=== PATIENT | male | born 1980 | race Caucasian/White ===

== ENCOUNTER 2023-04-13 14:44 | Day surgery (SDC) | payer OTHER, SELFPAY ==
[2023-04-13] VITALS (8 sets, daily range): BP systolic 105–139; BP diastolic 60–82; PULSE 78–87; RESP 16–22; TEMP 36.3–36.6; O2SAT 96–100
--- NOTE | ~2023-04-13 | XR_ITS ---
EXAMINATION: XR forearm RT 2V INDICATION: Right forearm laceration and pain TECHNIQUE: Two views of the right forearm are obtained. COMPARISON: None available FINDINGS: Bone alignment is normal. There is no fracture. There is a dorsal soft tissue laceration ov erlying the distal forearm. A 1 mm radiopaque density projects ventral and lateral to the distal radi us. The joint spaces are normal. IMPRESSION: 1. Soft tissue laceration of the right forearm without acute osseous abnormality. 2. 1 mm radiopaque density projecting ventral and lateral to the distal radius which appears to be di stant from the laceration site and is of unclear location. Reviewed, dictated and finalized at location B. ROOM COURIER IMPRESSION: 1. Soft tissue laceration of the right forearm without acute osseous abnormalit y. 2. 1 mm radiopaque density projecting ventral and lateral to the distal radius which appears to be distant from the laceration site and is of unclear location .
--- NOTE | 2023-04-13 15:33 | ED.WOUNDLAC ---
HPI - Wound/Laceration General Chief Complaint: Wound/Laceration Stated Complaint: cut right arm on window Time Seen by Provider: 04/13/23 15:14 Source: patient Mode of arrival: ambulatory Limitations: no limitations History of Present Illness HPI narrative: This is a 42 year old male that presents to the ER for right forearm laceration sustained just prior to arrival. Reports he cut it on a window. Reports bleeding and pain to the area. Denies decreased ROM in the left 4th and 5th fingers. Denies numbness. Related Data Allergies Allergy/AdvReac Type Severity Reaction Status Date / Time No Known Allergies Allergy Verified 04/13/23 15:09 Review of Systems Review of Systems: CONSTITUTIONAL: Denies fever SKIN: Reports laceration MUSCULOSKELETAL: Reports joint pain, and myalgia. NEUROLOGIC: Denies numbness All systems reviewed & are unremarkable except as noted in HPI and below PMFSH Past Medical History Medical History (Updated 04/13/23 @ 17:11 by Trang Morales PA-C) No active medical problems Social History Social History (Updated 04/13/23 @ 15:37 by Trang Morales PA-C) Substance use: never Exam Narrative: GENERAL: Well-appearing, well-nourished, and in no acute distress. HEAD: Normocephalic, atraumatic. EYES: EOMI. EXTREMITIES: Decreased extension in the right 4th and 5th fingers. Normal radial pulse. Normal sensation. 7cm linear laceration into the subcutaneous tissue to the distal forearm dorsal aspect, involving some muscles and tendons SKIN: Warm, dry, no rash. NEURO: No focal deficits. Alert and oriented x3. PSYCH: Normal mood and affect Course Consultations Consultation #1: Dr. Fernandez came down to the ER to evaluate patient and will take him to the OR for further management Date: 04/13/23 Vital Signs Vital signs: Vital Signs Temperature 97.9 F 04/13/23 14:50 Pulse Rate 79 04/13/23 14:50 Respiratory Rate 16 04/13/23 14:50 Blood Pressure 105/60 04/13/23 14:50 Pulse Oximetry 100 04/13/23 14:50 Temperature 97.9 F 04/13/23 14:50 Pulse Rate 79 04/13/23 14:50 Respiratory Rate 16 04/13/23 14:50 Blood Pressure 105/60 04/13/23 14:50 Pulse Oximetry 100 04/13/23 14:50 MDM - Wound/Laceration MDM Narrative Medical decision making narrative: Patient presents to the emergency department for a laceration of the right forearm sustained just prior to arrival. His wound was thoroughly irrigated and explored. He did appear to have involvement of some muscles and tendons in his forearm. Having difficulty extending his 4th and 5th fingers. Forearm x-ray without acute osseous abnormalities. Shows a 1mm radiopaque density which appears to be distant from the laceration site. Patient was updated on his tetanus vaccination. Dr. Fernandez came down to the ER to evaluate patient and will take him to the OR for further management Differential Diagnosis Differential diagnosis: Likely laceration Imaging Data Radiologist's impression: ITS Impressions Forearm X-Ray 04/13/23 15:34 IMPRESSION: 1. Soft tissue laceration of the right forearm without acute osseous abnormality. 2. 1 mm radiopaque density projecting ventral and lateral to the distal radius which appears to be distant from the laceration site and is of unclear location. Critical Care Time Critical Care Time Critical Care Time: No Discharge Plan Discharge Clinical Impression: Laceration of forearm, right, with tendon involvement Qualifiers: Encounter type: initial encounter Qualified Code(s): S51.811A - Laceration without foreign body of right forearm, initial encounter Patient Disposition: Still a Patient Condition: Stable
--- NOTE | 2023-04-13 17:11 | PC.NURSE ---
Dr. Fernandez at bedside assessing patient.
--- NOTE | 2023-04-13 17:17 | WPDCN ---
Assessment and Plan Assessment and plan (1) Laceration of forearm, right, with tendon involvement: Qualifiers: Encounter type: initial encounter Qualified Code(s): S51.811A - Laceration without foreign body of right forearm, initial encounter; S56.921A - Laceration of unspecified muscles, fascia and tendons at forearm level, right arm, initial encounter Code(s): S51.811A - Laceration without foreign body of right forearm, initial encounter; S56.921A - Laceration of unspecified muscles, fascia and tendons at forearm level, right arm, initial encounter Status: Acute Assessment and Plan: 42yo male with deep right forearm laceration and injury to muscle belly extensors of small and ring finger possible tendon involvement. reviwed impression and Dx and recommendation for surgical exploration and possible muscle belly/tendon repair as indicated reviewd procedure, postop expectations and risks. 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 He presented to ER and noted inability to extend small and ring finger. Given extent of injury plastic surgery consulted for eval and mgmt Review of Systems Review of Systems: All systems reviewed & are unremarkable except as noted in HPI and below PMFSH Past Medical History Medical History (Updated 04/13/23 @ 17:11 by Trang Morales PA-C) No active medical problems Social History Social History (Updated 04/13/23 @ 15:37 by Trang Morales PA-C) Substance use: never Meds Home Medications and Allergies Allergies Allergy/AdvReac Type Severity Reaction Status Date / Time No Known Allergies Allergy Verified 04/13/23 15:09 Vital Signs Vital Signs - 24 hr 04/13/23 14:50 Temperature 36.6 C Pulse Rate 79 Respiratory Rate 16 Blood Pressure 105/60 Pulse Oximetry 100 Exam Narrative: Gen: 7-8cm laceration on dorum tight mid forearm extending ulnarly. exposed lacerated muscle belly and identify early formation of extensor tendon. ROM:with finger extension no visible tendons in wound identified. unable to hold small and ring fingers when placed in extension Vascular: Warm and well perfused Sensation: Intact to light touch distal and dorsal to injury per pt [facility] Consult Billing Inpatient Consult Inpatient Consults: [id number] Consult Mod High
[2023-04-13] MEDS: TETANUS,DIPHTHERIA,AC PERTUSSIS ADULT (0.5 ML) BOOSTRIX IM (17:18)
--- NOTE | 2023-04-13 17:22 | P.OP_ITS ---
Procedure Note - Detailed Date of Procedure 04/13/23 Pre-op Diagnosis rigth forearm laceration Post-op Diagnosis Same (with laceration to extensor digitorum comminis, extensor digit minimi extensor carpi ulnaris and simple repair of a previously unidentified volar forearm laceration) Procedure Performed right forearm wound exploration and repair muscle belly and extensor tendon to ring and small finger and volar forearm laceration repair Surgeon Sierra Fernandez MD Shoe Polisher Gayatri Kapadia PA-C Anesthesia MAC Description of Procedure INFORMED CONSENT: The patient was seen and examined and marked in the pre-op area.? The patient signed the consent form. PROCEDURE IN DETAIL:The patient taken back to OR on the stretcher in supine position. Time out performed with anesthesia, surgeon and staff agreeing on patient's name site and surgery to be performed SCDs were placed on the lower extremities and inflated. A tourniquet was placed on {right} upper extremity and antibiotics given IV After anesthesia administered sedation I injected {10}cc 1%lido with epi and 0.5% marcaine plain at the operative site The?{right upper extremity}?was prepped and draped in sterile fashion the??{right upper extremity} was? exsanguinated with Esmarch bandage and tourniquet inflated to 250mmHg After skin prep a separate volar laceration was identified measuring 2cm in length. It was through dermis just into the subq but was noted not to be communicating with the larger dorsal laceration after probing it. The irregular skin flaps were trimmed sharply. This was irrigated and closed with 4-0 nylon suture Next I took my attention to the dorsal laceration and I proceeded with extending the patient's laceration distally and elevated flap above the antebrachial fascia for exposure. I irrigated copiously with normal saline. No retained foreign body was identified. The laceration appeared to involve the extensor digitorum communis to the small and ring finger, extensor digiti minimi and extensor carpi ulnaris. The majority of the laceration appeared to involve the muscle belly and fascia. The proximal and distal ends of anearly slip of tendon of the extensor digitorum communis to the ring finger was identified Thtendon to the ring finger was repaired with 4-0 fiberwire suture. 2-0 vicryl suture in figure of eights were used to repair the muscle bellies of the extensor digitorum communis, extensor digit minimi and the extensor carpi ulnaris. I irrigated the wound again with normal saline then closed the fascia with 3-0 fiberwire with figure of eight sutures. There was improved cascade of the fingers noted but not stressed at this time. The skin was closed with with 3-0 vicryl and 4-0 nylon suture. A dressing of xeroform, 4x4, lyn, and a volar splint was applied for patient safety, security, and comfort and secured with an vicente bandage after the tourni quet was let down noting the hand was warm and well perfused. The patient was then awaken from anesthesia and transferred to the recovery room in stable condition.? Complications - none EBL- 5cc Disposition - home in stable conditions Gaaytri Kapadia PA-C was essential for positioning, retraction, closure and dressing placement [facility] Billing Surgery - Charge Forward: Surgery Billing ([id number], [id number] same codes for Gayatri le )
--- NOTE | 2023-04-13 17:46 | P.PNAN_ITS ---
Anes - Eval Pre Procedure Procedure: right forearm wound exploration possible tendon/muscle repair, all necessary procedures Date/Time: 04/13/23 17:46 Surgeon: mitzy Preop Diagnosis: right forearm laceration with tendon involvement Pre Op Diagnosis: cut right arm on window Patient Data Age: 42 Gender: M Height: 1.83 m Weight: 128 kg Last Vital Signs Temp 36.6 C 04/13/23 14:50 Pulse 79 04/13/23 14:50 Resp 16 04/13/23 14:50 BP 105/60 04/13/23 14:50 Pulse Ox 100 04/13/23 14:50 Allergies Allergy/AdvReac Type Severity Reaction Status Date / Time No Known Allergies Allergy Verified 04/13/23 15:09 Patient hx anesthesia problems: none Family hx anesthesia problems: none Results Review: All pre-operative results and documents have been reviewed as part of the pre- operative evaluation. PMF Past Medical History Medical History No active medical problems Obesity (BMI 30-39.9) Smoker Social History Social History (Updated 04/13/23 @ 15:37 by Trang Morales PA-C) Substance use: never Exam Day of Procedure 04/13/23 17:46 Patient weight: obese Heart: regular rate and rhythm Lungs: decreased breath sounds Airway: Mallampati scale class III Neurological: alert and oriented
--- NOTE | 2023-04-13 17:52 | WPDHPUPDATE1 ---
History and Physical Update Update Date/Time: 04/13/23 17:52 History and Physical has been reviewed, including an updated exam of the patient. There are NO changes in the patient's condition. Risks, benefits, and alternatives have been discussed and questions answered. Patient agrees to proceed with procedure.
--- NOTE | 2023-04-13 17:55 | P.PNAN_ITS ---
Anes - Eval Final PreProcedure Day of Procedure 04/13/23 17:55 Patient weight: obese Heart: regular rate and rhythm Lungs: clear to auscultation Airway: Mallampati scale class II and special considerations poor dentition Neurological: alert and oriented Last oral intake: >/= 8 hours ASA classification: III Emergent: no Anesthetic plan: proceed Anesthesia type and monitoring: general ETT and standard monitoring Results Review: All pre-operative results and documents have been reviewed as part of the pre- operative evaluation. Informed Consent: The patient's anesthetic plan and its attendant risks and benefits were discussed with the patient/family/POA. Questions were solicited and answers provided to the satisfaction of the patient/family/POA.
[2023-04-13] MEDS: ceFAZolin SODIUM 1 GM VIAL IV PUSH (18:02)
[2023-04-13] MEDS: LACTATED RINGERS 1,000 ML 30 ML IV CONT (19:01)
[2023-04-13] MEDS: oxyCODONE HCL (*CRX) 5 MG TAB IR PO (20:06)
== END 2023-04-13 20:40 | disposition home or self-care (01) ==
LOC: ANHED 16:36 → ANHSURGERY 17:11
PROVIDERS: Emergency Provider Physician Assistant; Visit Provider Plastic Surgery
PROC: (CPT 25270; principal; 2023-04-13 17:55)
DX: S56.921A Laceration of unspecified muscles, fascia and tendons at forearm level, right arm, initial encounter (principal); S51.811A Laceration without foreign body of right forearm, initial encounter; W25.XXXA Contact with sharp glass, initial encounter; Z23 Encounter for immunization; E66.9 Obesity, unspecified; Z68.38 Body mass index [BMI] 38.0-38.9, adult
CPT/HCPCS: 25270 ×2; 12001; 73090; 90471; 90715; 99285; A9270; J0330; J0690; J1100; J1170; J2250; J2371; J2405; J2704; J3010; J7120